=== PATIENT | female | born 1965 | race Caucasian/White ===

== ENCOUNTER 2021-04-06 12:08 | Inpatient (IN) ==
[2021-04-06 13:24] LABS: ABS Lymphocytes 1.5 10^3/ul (1.0-4.8); ABS Monocytes 0.5 10^3/ul (0-0.8); ABS Neutrophils 5.1 10^3/ul (1.5-7.7); Eosinophil % 0.5 %; Hematocrit 28 % (35-47); Hemoglobin 9.1 g/dL (12.0-16.0); Lymphocyte % 20.5 %; Mean Corpuscular HGB Conc 33 g/dL (31-36); Mean Corpuscular Hemoglobin 24 pg (27-31); Mean Corpuscular Volume 73 fL (80-97); Mean Platelet Volume 8.3 fL (7.4-10.4); Platelet Count 196 10^3/uL (150-450); Red Blood Count 3.76 10^6 /uL (3.70-4.87); Red Cell Distribution Width 17 % (10-15); White Blood Count 7.1 10^3/uL (3.5-10.8)
[2021-04-06 13:43] LABS: Albumin 3.5 g/dL (3.2-5.2); Albumin/Globulin Ratio 1.3 (1-3); Calcium 9.7 mg/dL (8.6-10.3); Globulin 2.8 g/dL (2-4); Potassium 3.1 mmol/L (3.5-5.0); Total Bilirubin 0.6 mg/dL (0.2-1.0); Total Protein 6.3 g/dL (6.4-8.9); eGFR CKD-EPI 81.5 (>60)
[2021-04-06 13:44] LABS: Troponin I 0.01 ng/mL (<0.03)
[2021-04-06] MEDS ORDERED: Potassium Chlor 20 meq TAB.ER PO ONE (15:52)
[2021-04-06 16:14] LABS: Urine Appearance Clear; Urine Bilirubin Negative (Negative); Urine Blood Negative (Negative); Urine Color Yellow; Urine Glucose Negative (Negative); Urine Ketones Negative (Negative); Urine Nitrite Negative (Negative); Urine Protein Negative (Negative); Urine Urobilinogen Negative (Negative)
[2021-04-06 16:26] LABS: Urine Amorphous Crystals Present (Absent); Urine Bacteria Absent (Absent); Urine Red Blood Cell Trace(0-2/hpf) (Absent); Urine Squamous Epithelial Cell Present (Absent); Urine White Blood Cell 1+(6-10/hpf) (Absent)
[2021-04-06] MEDS ORDERED: Furosemide 40 mg/4 ml IV VIAL IV ONE (17:31)
[2021-04-06 18:10] LABS: Magnesium 1.1 mg/dL (1.9-2.7)
[2021-04-06] MEDS ORDERED: Magnesium Sulfate 2 gm BAG 2 GM/50 ML BAG IVPB ONE (18:15)
[2021-04-06] MEDS ORDERED: Morphine 2 MG/ML SYRINGE IV ONE (19:16)
[2021-04-06] MEDS ORDERED: Gadoteridol (CONTRAST) 279.3 MG/ML 10 ML IV ONE (19:44)
[2021-04-07] MEDS ORDERED: Lurasidone 120 mg TAB PO SCH (01:00)
[2021-04-07] MEDS ORDERED: Furosemide 40 mg/4 ml IV VIAL IV SLOW PU ONE (01:59)
[2021-04-07] MEDS: Enoxaparin 40 MG/0.4 ML SYR SUBCUT SCH ×2 (02:57→20:53)
[2021-04-07 03:18] LABS: % Iron Saturation 18 % (15-55); Iron 34 ug/dL (50-212); Total Iron Binding Capacity 192 mcg/dL (250-450); Transferrin 137 mg/dL (203-362); Unsaturated Iron Binding < 177 ug/dL
[2021-04-07 03:37] LABS: Ferritin 928.3 ng/mL (11-307)
[2021-04-07 06:56] LABS: HDL Cholesterol 33.7 mg/dL
[2021-04-07] MEDS ORDERED: Furosemide 20 mg/2 ml IV VIAL IV SLOW PU ONE (14:30)
[2021-04-07] MEDS: Diphenoxylat/Atrop 2.5-0.025mg TAB PO SCH (20:41)
[2021-04-07] MEDS: Hyoscyamine ER 0.375 mg (NF) TAB PO SCH (20:58)
[2021-04-08] MEDS: Diphenoxylat/Atrop 2.5-0.025mg TAB PO SCH ×2 (08:50→21:59)
[2021-04-08] MEDS: Hyoscyamine ER 0.375 mg (NF) TAB PO SCH ×2 (08:51→22:00)
[2021-04-08 09:19] LABS: ABS Eosinophils 0.1 10^3/ul (0-0.6); ABS Lymphocytes 1.8 10^3/ul (1.0-4.8); ABS Monocytes 0.5 10^3/ul (0-0.8); ABS Neutrophils 3.5 10^3/ul (1.5-7.7); Eosinophil % 1.3 %; Hematocrit 29 % (35-47); Hemoglobin 9.7 g/dL (12.0-16.0); Lymphocyte % 30.8 %; Mean Corpuscular HGB Conc 33 g/dL (31-36); Mean Corpuscular Hemoglobin 24 pg (27-31); Mean Corpuscular Volume 74 fL (80-97); Mean Platelet Volume 8.8 fL (7.4-10.4); Platelet Count 201 10^3/uL (150-450); Red Blood Count 3.99 10^6 /uL (3.70-4.87); Red Cell Distribution Width 17 % (10-15); White Blood Count 5.9 10^3/uL (3.5-10.8)
[2021-04-08 09:22] LABS: Calcium 8.9 mg/dL (8.6-10.3); Magnesium 1.4 mg/dL (1.9-2.7); Potassium 3.1 mmol/L (3.5-5.0); eGFR CKD-EPI 86.4 (>60)
[2021-04-08] MEDS ORDERED: Furosemide 20 mg/2 ml IV VIAL IV SLOW PU ONE (09:22)
[2021-04-08] MEDS ORDERED: Magnesium Sulf 4 GM/100 ML IV 4,000 MG/100 ML BAG IVPB ONE (09:24)
[2021-04-08] MEDS: Potassium Chlor 20 meq TAB.ER PO SCH ×2 (11:16→22:00)
[2021-04-08 17:42] LABS: Potassium 3.7 mmol/L (3.5-5.0); eGFR CKD-EPI 96.5 (>60)
[2021-04-08 19:16] LABS: Magnesium 3.4 mg/dL (1.9-2.7)
[2021-04-08] MEDS: Enoxaparin 40 MG/0.4 ML SYR SUBCUT SCH (22:00)
[2021-04-09 03:57] VITALS: BP 148/70
[2021-04-09 06:06] LABS: ABS Eosinophils 0.1 10^3/ul (0-0.6); ABS Lymphocytes 2.8 10^3/ul (1.0-4.8); ABS Monocytes 0.5 10^3/ul (0-0.8); ABS Neutrophils 3.3 10^3/ul (1.5-7.7); Eosinophil % 1.2 %; Hematocrit 32 % (35-47); Hemoglobin 10.3 g/dL (12.0-16.0); Lymphocyte % 41.8 %; Mean Corpuscular HGB Conc 33 g/dL (31-36); Mean Corpuscular Hemoglobin 24 pg (27-31); Mean Corpuscular Volume 74 fL (80-97); Mean Platelet Volume 8.6 fL (7.4-10.4); Nucleated Red Blood Cells % 0.1; Platelet Count 221 10^3/uL (150-450); Red Blood Count 4.29 10^6 /uL (3.70-4.87); Red Cell Distribution Width 17 % (10-15); White Blood Count 6.7 10^3/uL (3.5-10.8)
[2021-04-09 06:17] LABS: Magnesium 2.1 mg/dL (1.9-2.7); eGFR CKD-EPI 102.2 (>60)
[2021-04-09] MEDS: Diphenoxylat/Atrop 2.5-0.025mg TAB PO SCH (10:49)
[2021-04-09] MEDS: Potassium Chlor 20 meq TAB.ER PO SCH ×2 (10:51→11:06)
[2021-04-09] MEDS: Hyoscyamine ER 0.375 mg (NF) TAB PO SCH (10:51)
[2021-04-09] MEDS ORDERED: Lurasidone 120 mg TAB PO SCH (17:00)
== END 2021-04-09 15:25 | disposition home or self-care (01) | DRG 194 ==
LOC: ED 12:08 → SUATTDRO 04-07 00:19 → MEDTELE 04-07 00:19
PROVIDERS: ADMIT Internal Medicine; ATTEND Internal Medicine